=== PATIENT | female | born 1950 | race Caucasian/White ===

== ENCOUNTER → 2018-11-10 | Outpatient (CLI) | payer MEDICARE | END | disposition home or self-care (01) | LOC: CFH 15:59 | PROVIDERS: ATTEND Specialist | DX: I70.0 Atherosclerosis of aorta (principal); R31.29 Other microscopic hematuria; N18.3 Chronic kidney disease, stage 3 (moderate) | CPT/HCPCS: 76770 ==

== ENCOUNTER 2020-03-26 12:28 | Outpatient (CLI) | payer MEDICARE ==
[~2020-03-26 12:28] MED LIST: ASPI-515 PO; ATOR40TA78 PO; CHOL10002 PO; FLAX1CAP PO; FOLI0.4T2 PO; GABA300C10 PO; HYDR-3240 PO; LEVO100T PO; METH2.5T PO; METO25TA35 PO; PRAS10TA4 PO
== END 2020-03-26 23:59 | disposition home or self-care (01) ==
LOC: RAD 12:28
PROVIDERS: ATTEND Specialist
DX: S93.491A Sprain of other ligament of right ankle, initial encounter (principal); X58.XXXA Exposure to other specified factors, initial encounter; Y93.89 Activity, other specified; Y92.89 Other specified places as the place of occurrence of the external cause; Y99.8 Other external cause status; M67.873 Other specified disorders of tendon, right ankle and foot

== ENCOUNTER → 2020-06-05 | Outpatient (CLI) | payer MEDICARE ==
[~2020-06-05] MED LIST changes: +REGADENOSON 0.4 MG/5 ML SYRINGE ONE
== END | disposition home or self-care (01) ==
LOC: CFH 12:38
PROVIDERS: ATTEND Internal Medicine Cardiovascular Disease
DX: I25.89 Other forms of chronic ischemic heart disease (principal); Z95.5 Presence of coronary angioplasty implant and graft
CPT/HCPCS: 78452; 93017; A9502; J2785